=== PATIENT | male | born 1960 | race Two or more races ===

== ENCOUNTER 2021-09-16 14:13 | Emergency (ER) | payer OTHER ==
[~2021-09-16] VITALS: Ht 185.4 cm; Wt 136.1 kg
[2021-09-16 15:40] VITALS: BP 187/91
== END 2021-09-16 18:00 | disposition home or self-care (01) ==
LOC: ER 14:13
DX: M17.11 Unilateral primary osteoarthritis, right knee (principal); M16.11 Unilateral primary osteoarthritis, right hip; Z90.89 Acquired absence of other organs
CPT/HCPCS: 29505; 73502; 73562